=== PATIENT | male | born 1975 | race Two or more races ===

== ENCOUNTER → 2018-12-06 | Outpatient (CLI) | payer OTHER ==
--- NOTE | 2018-12-06 09:57 | REP ---
LUMBAR SPINE SERIES: FIVE VIEWS. HISTORY: Chronic low back pain. FINDINGS: Lateral view shows reversal of the normal lumbar lordosis. Lumbar vertebral body heights are preserved. There is discogenic spurring and disc space narrowing at L4-5 and L2-3 anteriorly. Disc spaces are otherwise preserved. Alignment is normal. There is no evidence of spondylolysis or spondylolisthesis. Sacrum and SI joints are intact. IMPRESSION: Straightening. Degenerative disc changes at L4-5 and L2-3. No acute bony abnormality. Electronically Signed by Nelson Kwok MD 12/06/2018 12:06 P
== END ==
LOC: M RAD 08:52
PROVIDERS: ATTEND Surgery
DX: M51.86 Other intervertebral disc disorders, lumbar region (principal)

== ENCOUNTER 2019-01-10 16:33 | Emergency (ER) | payer OTHER ==
[~2019-01-10] VITALS: Ht 175.3 cm; Wt 101.8 kg
[~2019-01-10 16:33] MED LIST: CLON0.3T PO; HYDR25TAB PO; IBUP-1022 PO; LISI40TA PO; LOPR1TAB6 PO; OMEP20TA PO
[2019-01-10] MEDS ORDERED: NITROGLYCERIN 0.4 MG SUBL TABLET SL PRN (17:00)
[2019-01-10] MEDS ORDERED: ASPIRIN 81 MG CHEW TABLET PO ONE (17:00)
[2019-01-10 17:34] LABS: BASO % 0.5 % (0.0-1.0); EOS # 0.4 10^3/uL (0.0-0.50); HEMOGLOBIN 13.2 g/dl (13.5-17.5); LYMPH # 2.2 10^3/uL (1.5-4.5); LYMPH % 35.6 % (24.0-44.0); MEAN CORPUSCULAR HEMOGLOBIN 28.2 pg (27.0-33.0); MEAN CORPUSCULAR VOLUME 85.5 fl (80.0-96.0); MONO # 0.5 10^3/uL (0.0-0.8); MONO % 8.8 % (0.0-5.0); NEUTROPHILS % 48.9 % (36.0-66.0); PLATELET COUNT, AUTOMATED 258 10^3/uL (150-450); RED BLOOD COUNT 4.68 10^6/uL (4.30-6.10); WHITE BLOOD COUNT 6.1 10^3/uL (4.0-10.0)
[2019-01-10 17:49] LABS: INR 0.97; PARTIAL THROMBOPLASTIN TIME 28.8 SECONDS (25.4-37.6)
[2019-01-10 18:45] LABS: ALBUMIN 3.9 GM/DL (3.2-5.2); ALT/SGPT 62 U/L (12-78); BILIRUBIN,DIRECT < 0.1 MG/DL (0.0-0.2); BILIRUBIN,TOTAL 0.4 MG/DL (0.2-1.0); BLOOD UREA NITROGEN 12 MG/DL (7-18); CALCIUM LEVEL 8.9 MG/DL (8.5-10.1); CARBON DIOXIDE LEVEL 28 MEQ/L (21-32); CHLORIDE LEVEL 105 MEQ/L (98-107); CREATININE FOR GFR 0.84 MG/DL (0.70-1.30); FREE T4 1.19 NG/DL (0.76-1.46); GLOMERULAR FILTRATION RATE > 60.0 (>60); GLUCOSE, FASTING 91 MG/DL (70-100); SODIUM LEVEL 139 MEQ/L (136-145); THYROID STIMULATING HORMONE 0.761 uIU/ML (0.358-3.740); TOTAL PROTEIN 6.6 GM/DL (6.4-8.2); TROPONIN I 0.02 NG/ML (< 0.10)
[2019-01-10 19:07] LABS: CPK CREATINE PHOSPHOKINASE 8005 U/L (39-308); MB/CK RELATIVE INDEX 0.04 (< OR =4); POTASSIUM SERUM 4.8 MEQ/L (3.5-5.1)
--- NOTE | 2019-01-10 19:48 | REP ---
REASON: Chest pain. FINDINGS: The superior mediastinal structures are midline. The cardiac silhouette is unremarkable in size, shape, and position. The diaphragmatic surfaces of the lungs are regular, and the costophrenic angles are clear. The pulmonary ortiz are clear. The imaged osseous structures are intact. IMPRESSION: There is no acute cardiopulmonary disease. Electronically Signed by Rom Tom DO 01/11/2019 04:22 P
--- NOTE | 2019-01-10 19:53 | REP ---
REASON: Head pain, status-post trauma. TECHNIQUE: 4.5 mm contiguous transaxial sections were obtained from the skull base to the cerebral convexities with thin cuts through the posterior fossa without the administration of intravenous contrast. FINDINGS: The ventricles and sulci are consistent with the patient's age. There are no extra-axial fluid collections. There is no mass effect. The deep cerebral white matter is consistent with the patient's age. The orbital and petrous structures, cerebellopontine angles, and posterior fossa are unremarkable. The sella turcica, cavernous, and paracavernous structures are essentially unremarkable. The visualized portions of the paranasal sinuses and mastoid air cells are clear. Images of the skull base show no gross abnormality. IMPRESSION: Essentially unremarkable CT examination of the brain. Electronically Signed by Rom Tom DO 01/11/2019 04:22 P
--- NOTE | 2019-01-10 20:21 | REPVR ---
EXAM: MR Head Without Contrast EXAM DATE/TIME: 01/10/2019 7:27 PM CLINICAL HISTORY: 43 years old, male; Other: RT arm pain weakness; Patient HX: RT arm and chest pain/weakness. Nki; Additional info: CVA TECHNIQUE: Imaging protocol: MR of the head without contrast. COMPARISON: CT Head without contrast 01/10/2019 4:57 PM FINDINGS: No abnormal restriction of diffusion to indicate acute CVA. Midline structures and cerebellar tonsillar position appear normal. Ventricles, cisterns and sulci are symmetric and normal for age. No intracranial mass, midline shift or abnormal extra-axial fluid. No acute intracranial hemorrhage or hemosiderin deposition. No abnormal white matter signal on T2 sequences. Optic chiasm and pituitary infundibulum appear normal. Normal vascular flow voids in major intracranial arteries and dural venous sinuses. Paranasal sinuses are clear. Mastoid air cells are normally aerated. Optic globes and orbits are unremarkable. IMPRESSION: Unremarkable noncontrast MRI of the brain. Electronically signed by: Dylan Contreras On 01/10/2019 20:21:00 PM
--- NOTE | 2019-01-10 20:24 | REPVR ---
EXAM: MR Angiogram Head Without Contrast, Arteries EXAM DATE/TIME: 01/10/2019 7:27 PM CLINICAL HISTORY: 43 years old, male; Other: RT arm pain; Patient HX: RT arm and chest pain/weakness. Nki; Additional info: CVA TECHNIQUE: Imaging protocol: MR angiogram head without contrast. Exam focused on the arteries. 3D rendering: MIP reconstructed images were created and reviewed. COMPARISON: CT Head without contrast 01/10/2019 4:57 PM FINDINGS: Anterior circulation: Normal flow signal and luminal caliber in the petrous, cavernous and supraclinoid internal carotid arteries. Normal appearance of the anterior cerebral artery branches and middle cerebral artery branches through the MCA trifurcations. No occlusion, high-grade focal stenosis or dissection. No aneurysm. Right A1 segment is diminutive. Right anterior cerebral artery is supplied by a patent anterior communicating artery Posterior circulation: Normal distal vertebral arteries, with patent normal caliber basilar artery, and normal superior cerebellar and posterior cerebral arteries. No occlusion, high-grade stenosis or aneurysm. IMPRESSION: Unremarkable MR angiogram of the [place] and intracranial vertebrobasilar system. No evidence of intracranial large vessel disease Electronically signed by: Dylan Contreras On 01/10/2019 20:24:18 PM
[2019-01-10 23:33] LABS: CPK CREATINE PHOSPHOKINASE 6447 U/L (39-308); MB/CK RELATIVE INDEX 0.03 (< OR =4); TROPONIN I < 0.02 NG/ML (< 0.10)
[2019-01-11] VITALS: BP 139/87
--- NOTE | 2019-01-11 07:16 | ECGEPIP ---
Stationary ECG Study [facility] - ED Test Date: 2019-01-10 Pat Name: NOEL WAGNER Department: Room: - Gender: M Bottom Buffer: GT : 1975 Requested By: YE More Order Number: [id number] Reading MD: Alfonso Knight Measurements Intervals [place] Rate: 55 P: 53 MD: 171 QRS: 5 QRSD: 84 T: -3 QT: 409 QTc: 394 Interpretive Statements SINUS BRADYCARDIA NSTTW ABNORMALITIES NO PRIORS FOR COMPARISON Electronically Signed On 01-11-2019 7:16:11 EDT by Alfonso Knight
--- NOTE | 2019-01-12 05:42 | ECGEPIP ---
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
== END 2019-01-11 00:11 | disposition home or self-care (01) ==
LOC: M ED 16:33
DX: I10 Essential (primary) hypertension (principal); R00.1 Bradycardia, unspecified; M79.601 Pain in right arm; R07.9 Chest pain, unspecified; R51 Headache; Z79.899 Other long term (current) drug therapy; Z87.891 Personal history of nicotine dependence; Z88.0 Allergy status to penicillin; Z91.013 Allergy to seafood

== ENCOUNTER 2019-02-02 11:42 | Emergency (ER) | payer OTHER ==
[~2019-02-02] VITALS: Ht 172.7 cm; Wt 105.0 kg
[2019-02-02] MEDS ORDERED: METO1TAB7 PO (12:04)
[2019-02-02] MEDS ORDERED: AMLO5TAB6 PO (12:04)
[2019-02-02 12:19] LABS: BASO % 0.4 % (0.0-1.0); EOS # 0.4 10^3/uL (0.0-0.50); EOS % 5.1 % (0.0-3.0); HEMATOCRIT 41.5 % (42.0-52.0); HEMOGLOBIN 13.6 g/dl (13.5-17.5); LYMPH # 2.7 10^3/uL (1.5-4.5); LYMPH % 38.4 % (24.0-44.0); MEAN CORPUSCULAR HEMOGLOBIN 28.8 pg (27.0-33.0); MEAN CORPUSCULAR HGB CONC 32.8 g/dl (32.0-36.5); MEAN CORPUSCULAR VOLUME 87.7 fl (80.0-96.0); MONO # 0.5 10^3/uL (0.0-0.8); MONO % 6.8 % (0.0-5.0); NEUTROPHILS # 3.4 10^3/uL (1.8-7.7); PLATELET COUNT, AUTOMATED 242 10^3/uL (150-450); RED BLOOD COUNT 4.73 10^6/uL (4.30-6.10); WHITE BLOOD COUNT 6.9 10^3/uL (4.0-10.0)
[2019-02-02 12:45] LABS: ERYTHROCYTE SEDIMENTATION RATE 5 mm/hr (0-15)
[2019-02-02 12:48] LABS: ALBUMIN 3.6 GM/DL (3.2-5.2); ALT/SGPT 34 U/L (12-78); BILIRUBIN,DIRECT < 0.1 MG/DL (0.0-0.2); BILIRUBIN,TOTAL 0.3 MG/DL (0.2-1.0); BLOOD UREA NITROGEN 11 MG/DL (7-18); C REACTIVE PROTEIN QUANTITATIV < 0.30 MG/DL (0.00-0.30); CALCIUM LEVEL 8.6 MG/DL (8.5-10.1); CARBON DIOXIDE LEVEL 29 MEQ/L (21-32); CHLORIDE LEVEL 104 MEQ/L (98-107); CPK CREATINE PHOSPHOKINASE 522 U/L (39-308); CREATININE FOR GFR 0.95 MG/DL (0.70-1.30); GLOMERULAR FILTRATION RATE > 60.0 (>60); GLUCOSE, FASTING 131 MG/DL (70-100); MAGNESIUM LEVEL 2.1 MG/DL (1.8-2.4); MB/CK RELATIVE INDEX 0.71 (< OR =4); POTASSIUM SERUM 4.3 MEQ/L (3.5-5.1); SODIUM LEVEL 137 MEQ/L (136-145); TROPONIN I < 0.02 NG/ML (< 0.10)
--- NOTE | 2019-02-02 12:53 | REP ---
CT Head without contrast HISTORY: Right arm pain COMPARISON: 01/10/2019 There is no intraparenchymal hemorrhage, acute infarct, mass or midline shift. The ventricular system is normal in appearance. There is no extra cerebral collection. There is no fracture. The visualized sinuses are clear. IMPRESSION: There is no intracranial lesion. Electronically Signed by eJrmain Keenan MD 02/02/2019 12:45 P
--- NOTE | 2019-02-02 12:57 | REP ---
CT cervical spine without contrast HISTORY: Right arm pain COMPARISON: None There is no acute fracture or subluxation. A disc bulge with associated osteophyte formation is present at the C5-6 level. There is minimal narrowing of the spinal canal. Bilateral uncinate process hypertrophy is present. This produces minimal narrowing of the C5 neural foramina. There is no other disc bulge or herniation. The remaining neural foramina are patent. The C5-6 intervertebral disc is decreased in height consistent with disc degeneration. IMPRESSION: 1. There is no acute fracture or subluxation. 2. There is cervical spondylosis at the C5-6 level. Electronically Signed by Jermain Keenan MD 02/02/2019 12:48 P
--- NOTE | 2019-02-02 13:13 | REP ---
CHEST, SINGLE VIEW: There is no evidence of acute infiltrate. No pleural effusion is seen. The heart is normal in size. The mediastinal silhouette is unremarkable. The visualized osseous structures are intact. IMPRESSION: No acute pulmonary disease. Electronically Signed by Lee Bryson MD 02/03/2019 10:57 A
[2019-02-02] MEDS ORDERED: NS 1,000 ML IV ONE (14:00)
[2019-02-02] MEDS ORDERED: KETOROLAC 30 MG/ML VIAL (J1885) IV ONE (14:00)
[2019-02-02 15:34] LABS: AMPHETAMINES LEVEL URINE NEGATIVE (NEGATIVE); BARBITURATES URINE NEGATIVE (NEGATIVE); BENZODIAZEPINES URINE NEGATIVE (NEGATIVE); CANNABINOIDS URINE NEGATIVE (NEGATIVE); COCAINE METABOLITE URINE NEGATIVE (NEGATIVE); METHADONE URINE NEGATIVE (NEGATIVE); OPIATES URINE NEGATIVE (NEGATIVE); PHENCYCLIDINE URINE NEGATIVE (NEGATIVE)
[2019-02-02 15:49] LABS: CPK CREATINE PHOSPHOKINASE 496 U/L (39-308); MB/CK RELATIVE INDEX 0.71 (< OR =4); TROPONIN I < 0.02 NG/ML (< 0.10)
[2019-02-02 17:02] VITALS: BP 128/77
--- NOTE | 2019-02-03 07:20 | ECGEPIP ---
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
--- NOTE | 2019-02-03 07:22 | ECGEPIP ---
[facility] - ED Test Date: 2019-02-02 Pat Name: NOEL WAGNER Department: Room: - Gender: Male Clipper Counters: GARRETT : 1975 Requested By: MARCIA Cook Order Number: [id number] Reading MD: Alfonso Knight Measurements Intervals [place] Rate: 50 P: 7 AL: 176 QRS: 24 QRSD: 85 T: 8 QT: 422 QTc: 386 Interpretive Statements SINUS BRADYCARDIA BENIGN EARLY REPOLARIZATION SIMILAR TO PRIOR ON SAME DATE Electronically Signed on 02-03-2019 7:21:50 EDT by Alfonso Knight
== END 2019-02-02 17:09 | disposition home or self-care (01) ==
LOC: M ED 11:42
DX: R07.89 Other chest pain (principal); M62.82 Rhabdomyolysis; I10 Essential (primary) hypertension; Z79.899 Other long term (current) drug therapy; Z88.0 Allergy status to penicillin; Z91.018 Allergy to other foods; Z87.891 Personal history of nicotine dependence
CPT/HCPCS: 70450; 71045; 72125; 80048; 80076; 80307; 82550; 82553; 83735; 84484; 85025; 85652; 86140; 93005; 93041; 94760; 96374; 99285; J1885

== ENCOUNTER 2019-04-06 16:48 | Emergency (ER) | payer OTHER ==
[~2019-04-06] VITALS: Ht 175.3 cm; Wt 101.4 kg
[~2019-04-06 16:48] MED LIST changes: +AMLO5TAB6 PO; +METO1TAB7 PO
[2019-04-06 17:41] LABS: BASO % 0.5 % (0.0-1.0); EOS # 0.2 10^3/uL (0.0-0.50); EOS % 3.1 % (0.0-3.0); HEMATOCRIT 44.1 % (42.0-52.0); HEMOGLOBIN 14.3 g/dl (13.5-17.5); LYMPH # 2.1 10^3/uL (1.5-4.5); LYMPH % 28.8 % (24.0-44.0); MEAN CORPUSCULAR HEMOGLOBIN 28.6 pg (27.0-33.0); MEAN CORPUSCULAR HGB CONC 32.4 g/dl (32.0-36.5); MEAN CORPUSCULAR VOLUME 88.2 fl (80.0-96.0); MONO # 0.5 10^3/uL (0.0-0.8); MONO % 6.6 % (0.0-5.0); NEUTROPHILS # 4.5 10^3/uL (1.8-7.7); NEUTROPHILS % 60.7 % (36.0-66.0); PLATELET COUNT, AUTOMATED 250 10^3/uL (150-450); WHITE BLOOD COUNT 7.4 10^3/uL (4.0-10.0)
[2019-04-06 17:53] LABS: PROTHROMBIN TIME 12.9 SECONDS (11.8-14.0)
[2019-04-06] MEDS ORDERED: NITROGLYCERIN 2% OINT 1 GM *U/D* PKT TOP ONE (18:00)
[2019-04-06 18:03] LABS: ALT/SGPT 18 U/L (12-78); BILIRUBIN,TOTAL 0.3 MG/DL (0.2-1.0); BLOOD UREA NITROGEN 14 MG/DL (7-18); CALCIUM LEVEL 9.6 MG/DL (8.5-10.1); CARBON DIOXIDE LEVEL 30 MEQ/L (21-32); CHLORIDE LEVEL 107 MEQ/L (98-107); CK-MB VALUE MASS 2.1 NG/ML (<3.6); CPK CREATINE PHOSPHOKINASE 305 U/L (39-308); CREATININE FOR GFR 1.02 MG/DL (0.70-1.30); GLOMERULAR FILTRATION RATE > 60.0 (>60); GLUCOSE, FASTING 78 MG/DL (70-100); LIPASE 71 U/L (73-393); MB/CK RELATIVE INDEX 0.69 (< OR =4); SODIUM LEVEL 141 MEQ/L (136-145); TOTAL PROTEIN 7.3 GM/DL (6.4-8.2); TROPONIN I < 0.02 NG/ML (< 0.10)
[2019-04-06] MEDS ORDERED: ISOVUE-370 76% 100ML VIAL (Q9967) As Ordered ONE (19:21)
--- NOTE | 2019-04-06 19:37 | REP ---
HISTORY: Chest pain. COMPARISON: 02/02/2019. The technique utilized in obtaining the radiograph has magnified the cardiac silhouette and accentuated the interstitial markings. The superior mediastinal structures are midline. The cardiac silhouette is unremarkable in size, shape, and position. The diaphragmatic surfaces of the lungs are regular, and the costophrenic angles are clear. The pulmonary ortiz are clear. The imaged osseous structures are intact. IMPRESSION: There is no acute cardiopulmonary disease. Electronically Signed by Rom Tom DO 04/06/2019 07:46 P
--- NOTE | 2019-04-06 20:21 | REPVR ---
EXAM: CT Angiography Chest With Contrast EXAM DATE/TIME: 04/06/2019 7:32 PM CLINICAL HISTORY: 43 years old, male; Chest pain TECHNIQUE: Imaging protocol: Axial computed tomographic angiography images of the chest with intravenous contrast using CT angiography protocol. Coronal and sagittal reformatted images were created and reviewed. 3D rendering: MIP reconstructed images were created and reviewed. Radiation optimization: All CT scans at this facility use at least one of these dose optimization techniques: automated exposure control; mA and/or kV adjustment per patient size (includes targeted exams where dose is matched to clinical indication); or iterative reconstruction. Contrast material: ISOVUE 370;Contrast volume: 75 ml;Contrast route: IV; COMPARISON: CR PORTABLE CHEST X-RAY 04/06/2019 5:43 PM FINDINGS: Pulmonary arteries: No focal pulmonary artery filling defect to suggest acute pulmonary embolus. Aorta: No thoracic aortic aneurysm or dissection. Lungs: Pulmonary vascular/interstitial pattern does not suggest active pulmonary edema. No suspicious lung mass or air space process. No central endobronchial lesion. Pleural space: No pleural effusion or pneumothorax. Heart: No overt cardiac enlargement or pericardial effusion. Mediastinum: Possible 2 cm esophageal diverticulum or foregut duplication cyst within the AP window. Lymph nodes: Small, nonspecific mediastinal nodes are present. Bones/joints: Bony structures show no acute fracture or destructive process. Soft tissues: Unremarkable. IMPRESSION: 1. No evidence of acute pulmonary embolus. 2. No other acute or concerning focal intrathoracic abnormality. Electronically signed by: Dylan Contreras On 04/06/2019 20:21:15 PM
[2019-04-06] MEDS ORDERED: KETOROLAC 30 MG/ML VIAL (J1885) IV ONE (21:00)
[2019-04-06] MEDS ORDERED: cloNIDine 0.1 MG TAB PO ONE (21:00)
--- NOTE | 2019-04-06 21:03 | ECGEPIP ---
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
[2019-04-06 21:09] VITALS: BP 190/92
[2019-04-06 21:32] LABS: CK-MB VALUE MASS 1.9 NG/ML (<3.6); CPK CREATINE PHOSPHOKINASE 282 U/L (39-308); MB/CK RELATIVE INDEX 0.67 (< OR =4); TROPONIN I < 0.02 NG/ML (< 0.10)
[2019-04-06] MEDS ORDERED: SUCR1TA PO (21:53)
[2019-04-06] MEDS ORDERED: IBUP-1022 PO (21:53)
[2019-04-06 21:59] VITALS: BP 145/88
[2019-04-06] MEDS ORDERED: GI COCKTAIL 50ML BTL(HYOSCYAMINE/MAALOX/LIDOCAINE VISCOUS)(1:3:1) PO ONE (22:00)
--- NOTE | 2019-04-07 20:38 | ECGEPIP ---
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
== END 2019-04-06 22:07 | disposition home or self-care (01) ==
LOC: M ED 16:48
DX: R07.89 Other chest pain (principal); R00.1 Bradycardia, unspecified; I10 Essential (primary) hypertension; Z72.0 Tobacco use; Z79.899 Other long term (current) drug therapy; Z88.0 Allergy status to penicillin; Z91.013 Allergy to seafood
CPT/HCPCS: 71045; 71275; 80053; 82550; 82553; 83690; 84484; 85025; 85610; 93005; 93041; 94760; 96374; 99285; J1885; Q9967

== ENCOUNTER 2019-05-08 19:55 | Emergency (ER) | payer OTHER ==
[~2019-05-08] VITALS: Ht 172.7 cm; Wt 101.0 kg
[~2019-05-08 19:55] MED LIST changes: +OMEP-358 PO; -OMEP20TA PO; +SUCR1TA PO
[2019-05-08 20:33] LABS: BASO % 0.4 % (0.0-1.0); EOS # 0.4 10^3/uL (0.0-0.50); EOS % 4.4 % (0.0-3.0); HEMATOCRIT 45.7 % (42.0-52.0); HEMOGLOBIN 15.3 g/dl (13.5-17.5); LYMPH # 2.2 10^3/uL (1.5-4.5); LYMPH % 23.5 % (24.0-44.0); MEAN CORPUSCULAR HEMOGLOBIN 27.5 pg (27.0-33.0); MEAN CORPUSCULAR HGB CONC 33.5 g/dl (32.0-36.5); MEAN CORPUSCULAR VOLUME 82.2 fl (80.0-96.0); MONO # 0.7 10^3/uL (0.0-0.8); NEUTROPHILS % 64.4 % (36.0-66.0); PLATELET COUNT, AUTOMATED 260 10^3/uL (150-450); RED BLOOD COUNT 5.56 10^6/uL (4.30-6.10); WHITE BLOOD COUNT 9.3 10^3/uL (4.0-10.0)
[2019-05-08 20:57] LABS: BLOOD UREA NITROGEN 11 MG/DL (7-18); CALCIUM LEVEL 9.4 MG/DL (8.5-10.1); CARBON DIOXIDE LEVEL 24 MEQ/L (21-32); CHLORIDE LEVEL 100 MEQ/L (98-107); CK-MB VALUE MASS 2.5 NG/ML (<3.6); CPK CREATINE PHOSPHOKINASE 511 U/L (39-308); CREATININE FOR GFR 1.39 MG/DL (0.70-1.30); GLOMERULAR FILTRATION RATE > 60.0 (>60); GLUCOSE, FASTING 128 MG/DL (70-100); MB/CK RELATIVE INDEX 0.49 (< OR =4); POTASSIUM SERUM 3.7 MEQ/L (3.5-5.1); SODIUM LEVEL 137 MEQ/L (136-145); TROPONIN I < 0.02 NG/ML (< 0.10)
[2019-05-08] MEDS ORDERED: ISOVUE-370 76% 100ML VIAL (Q9967) As Ordered ONE (21:43)
[2019-05-08 22:04] LABS: AMPHETAMINES LEVEL URINE NEGATIVE (NEGATIVE); BARBITURATES URINE NEGATIVE (NEGATIVE); BENZODIAZEPINES URINE NEGATIVE (NEGATIVE); CANNABINOIDS URINE NEGATIVE (NEGATIVE); COCAINE METABOLITE URINE NEGATIVE (NEGATIVE); METHADONE URINE NEGATIVE (NEGATIVE); OPIATES URINE NEGATIVE (NEGATIVE); PHENCYCLIDINE URINE NEGATIVE (NEGATIVE)
--- NOTE | 2019-05-08 22:07 | REPVR ---
EXAM: CT Angiography Chest With Contrast EXAM DATE/TIME: 05/08/2019 9:43 PM CLINICAL HISTORY: 43 years old, male; Chest pain; Additional info: Dysp TECHNIQUE: Imaging protocol: Computed tomographic angiography images of the chest with intravenous contrast using CT angiography protocol. 3D rendering: MIP reconstructed images were created and reviewed. Radiation optimization: All CT scans at this facility use at least one of these dose optimization techniques: automated exposure control; mA and/or kV adjustment per patient size (includes targeted exams where dose is matched to clinical indication); or iterative reconstruction. Contrast material: ISOVUE 370; Contrast volume: 100 ml; Contrast route: IV; COMPARISON: CT ANGIO CHEST 04/06/2019 7:31 PM FINDINGS: Pulmonary arteries: No focal pulmonary artery filling defect to suggest acute pulmonary embolus. Aorta: No thoracic aortic aneurysm or dissection. Lungs: Pulmonary vascular/interstitial pattern does not suggest active pulmonary edema. No suspicious lung mass or air space process. No central endobronchial lesion. Pleural space: No pleural effusion or pneumothorax. Heart: No pericardial effusion or overt cardiac enlargement. Lymph nodes: Small, nonspecific mediastinal nodes are present. Bones/joints: Bony structures show no acute fracture or destructive process. IMPRESSION: 1. No evidence of acute pulmonary embolus. 2. No other acute or concerning focal intrathoracic abnormality. Electronically signed by: Dylan Contreras On 05/08/2019 22:07:25 PM
[2019-05-08 23:37] VITALS: BP 122/79
--- NOTE | 2019-05-10 08:06 | ECGEPIP ---
[facility] - ED Test Date: 2019-05-08 Pat Name: NOEL WAGNER Department: Room: - Gender: Male Rag Inspector: destiney : 1975 Requested By: ALVINA HSU Order Number: [id number] Reading MD: Alfonso Knight Measurements Intervals [place] Rate: 110 P: 79 MI: 139 QRS: 37 QRSD: 82 T: 45 QT: 341 QTc: 461 Interpretive Statements SINUS TACHYCARDIA POOR R WAVE PROGRESSION BASELINE ARTIFACT AFFECTS INTERPRETATION Electronically Signed on 05-10-2019 8:06:50 EDT by Alfonso Knight
--- NOTE | 2019-05-10 08:48 | REP ---
Clinical: Acute chest pain . Comparison: 04/06/2019 . Findings: The mediastinum and cardiac silhouette are stable and within normal limits for portable technique. The lung ortiz are clear without acute consolidation, effusion, or pneumothorax. Skeletal structures are intact. Impression: No acute cardiopulmonary process appreciated. Electronically Signed by Jason Whipple MD 05/09/2019 01:26 A
== END 2019-05-08 23:44 | disposition home or self-care (01) ==
LOC: M ED 19:55
DX: F45.8 Other somatoform disorders (principal); I10 Essential (primary) hypertension; F41.9 Anxiety disorder, unspecified; K21.9 Gastro-esophageal reflux disease without esophagitis; Z79.899 Other long term (current) drug therapy; Z88.0 Allergy status to penicillin; Z91.013 Allergy to seafood; F17.210 Nicotine dependence, cigarettes, uncomplicated
CPT/HCPCS: 36415; 71045; 71275; 80048; 80307; 82550; 82553; 84484; 85025; 93005; 93041; 94760; 99285; Q9967

== ENCOUNTER 2019-11-14 10:29 | Emergency (ER) | payer OTHER ==
[~2019-11-14] VITALS: Ht 172.7 cm; Wt 110.8 kg
[2019-11-14] MEDS ORDERED: MORPHINE 4 MG/ML 1ML VIAL/SYRINGE (J2270) IV ONE (11:00)
[2019-11-14] MEDS ORDERED: ONDANSETRON 4MG/2ML VIAL (J2405) IV ONE (11:00)
[2019-11-14 11:22] LABS: BASO # 0.1 10^3/uL (0.0-0.2); BASO % 0.6 % (0.0-1.0); EOS # 0.3 10^3/uL (0.0-0.5); EOS % 3.3 % (0.0-3.0); HEMATOCRIT 43.1 % (42.0-52.0); LYMPH # 2.1 10^3/uL (1.5-5.0); LYMPH % 27.2 % (24.0-44.0); MEAN CORPUSCULAR HEMOGLOBIN 27.8 pg (27.0-33.0); MEAN CORPUSCULAR HGB CONC 32.5 g/dl (32.0-36.5); MEAN CORPUSCULAR VOLUME 85.5 fl (80.0-96.0); MONO # 0.5 10^3/uL (0.0-0.8); MONO % 6.9 % (0.0-5.0); NEUTROPHILS # 4.8 10^3/uL (1.5-8.5); NEUTROPHILS % 61.7 % (36.0-66.0); PLATELET COUNT, AUTOMATED 248 10^3/uL (150-450); RED BLOOD COUNT 5.04 10^6/uL (4.30-6.10); WHITE BLOOD COUNT 7.8 10^3/uL (4.0-10.0)
--- NOTE | 2019-11-14 11:43 | REP ---
CHEST, SINGLE VIEW: There is no evidence of acute infiltrate. No pleural effusion is seen. The heart is normal in size. The mediastinal silhouette is unremarkable. The visualized osseous structures are intact. IMPRESSION: No acute pulmonary disease. Electronically Signed by Lee Bryson MD 11/14/2019 01:35 P
--- NOTE | 2019-11-14 11:47 | REP ---
CT ABDOMEN AND PELVIS WITHOUT IV OR ORAL CONTRAST: HISTORY: Left lower quadrant pain. Comparison CT study December 15, 2018. CT FINDINGS: Preliminary digital scouts radiograph is unremarkable. The lung bases are clear. The liver and the spleen are normal in size homogeneous in texture. No abnormality is noted in the gallbladder. The pancreas is unremarkable. Normal adrenal glands are seen bilaterally. There is no evidence of intrarenal calculus, mass, or hydronephrosis on either side. No definite cyst is seen. No retroperitoneal mass or adenopathy is observed. Small and large bowel loops are unremarkable in the upper abdomen. There is moderate stool throughout the colon. A normal appendix is seen in the right mid abdomen containing some air without inflammation. Urinary bladder, seminal vesicles, prostate gland are unremarkable. There are multiple bilateral inguinal lymph nodes which are felt to be stable from the December 15, 2018 study. No intrapelvic adenopathy is seen. There is no evidence of diverticulosis or diverticulitis. Bone window settings show no bony destructive lesion. Question small umbilical hernia again seen unchanged. There is fatty infiltration of the spermatic cord on the right. No other abdominal wall defect is seen. IMPRESSION: No acute intra-abdominal abnormality. Normal appendix seen. Stable slightly prominent bilateral inguinal lymph nodes. Normal appendix. Electronically Signed by Nelson Kwok MD 11/14/2019 01:04 P
[2019-11-14 11:49] LABS: ALBUMIN 4.3 GM/DL (3.2-5.2); BILIRUBIN,DIRECT 0.1 MG/DL (0.0-0.2); BILIRUBIN,TOTAL 0.5 MG/DL (0.2-1.0); TOTAL PROTEIN 8.2 GM/DL (6.4-8.2)
[2019-11-14] MEDS ORDERED: CIPR-249 PO (12:08)
[2019-11-14] MEDS ORDERED: FLAG500T PO (12:08)
[2019-11-14 12:11] VITALS: BP 152/96
[2019-11-14] MEDS ORDERED: CIPROFLOXACIN 500 MG TAB PO ONE (12:15)
[2019-11-14] MEDS ORDERED: metroNIDAZOLE (FLAGYL) 500 MG TAB PO ONE (12:15)
--- NOTE | 2019-11-14 20:52 | ECGEPIP ---
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
== END 2019-11-14 12:44 | disposition home or self-care (01) ==
LOC: M ED 10:29
DX: R10.9 Unspecified abdominal pain (principal); I10 Essential (primary) hypertension; K21.9 Gastro-esophageal reflux disease without esophagitis; F41.9 Anxiety disorder, unspecified; Z79.899 Other long term (current) drug therapy; Z88.0 Allergy status to penicillin; Z91.018 Allergy to other foods; Z87.891 Personal history of nicotine dependence
CPT/HCPCS: 36415; 71045; 74176; 80047; 80076; 81001; 83605; 83690; 85025; 93005; 93041; 96374; 96375; 99284; J2270; J2405